=== PATIENT | male | born 1980 | race American Indian/Alaskan Native ===

== ENCOUNTER 2021-07-26 19:46 | Emergency (ER) | payer SELFPAY ==
[2021-07-26 21:39] VITALS: BP 151/96
--- NOTE | 2021-07-26 22:22 | XRay Report ---
RIGHT HAND 3 VIEW(S) INDICATION / CLINICAL INFORMATION: MIDDLE FINGER INJURY - DISLOCATION COMPARISON: None available. FINDINGS: BONES / JOINT(S): There is a dislocation at the long finger PIP joint with the middle phalanx disloca frederick posteriorly relative to the proximal phalanx of approximately one shaft width. No acute fracture identified. SOFT TISSUES: No significant abnormality. ADDITIONAL FINDINGS: None. Signer Name: Fortunato Ferrer MD Signed: 07/26/2021 10:17 PM Workstation Name: [id number]
[2021-07-26] MEDS ORDERED: LIDOCAINE-MPF (1%) 10 MG/1 ML VIAL 5 ML INFILTRATI ONE (22:37)
[2021-07-26] MEDS ORDERED: IBUPROFEN 600 MG TAB PO ONE (22:37)
[2021-07-27] MEDS ORDERED: HYDROcodone/ACETAMINOPHEN 5-325 MG TAB PO ONE (00:30)
[2021-07-27] MEDS ORDERED: ONDANSETRON 4 MG ODT TAB PO ONE (00:30)
--- NOTE | 2021-07-27 01:31 | XRay Report ---
RIGHT HAND, 2 VIEWS INDICATION / CLINICAL INFORMATION: Post-reduction x-ray- right middle finger. COMPARISON: 07/26/2021 FINDINGS: There has been successful reduction of previously noted dislocated PIP joint, middle finger. No fracture. Alignment is now normal. IMPRESSION: Successful reduction of previously noted dislocated PIP joint, middle finger. No visible fracture. Signer Name: Dian Prado MD Signed: 07/27/2021 1:26 AM Workstation Name: [id number]
--- NOTE | 2021-07-27 01:51 | Emergency Department Report ---
ED Upper Extremity Inj HPI - General Chief Complaint: Extremity Injury, Upper Stated Complaint: DISLOCATED FINGER Source: patient Mode of arrival: Ambulatory Limitations: No Limitations - History of Present Illness Initial Comments: Patient is a 41-year-old -Al[place]ian male with no past medical history presents to the ED with complaint of acute onset persistent right hand and right middle finger pain with deformity and swelling after he accidentally tripped at work and landed on his right hand and ended up flexing his right middle finger and felt a "pop" sound in the process about 8 hours ago. Patient states that since then he has not been able to perform any active range of motion of the right middle finger because of deformity, swelling and pain. Patient denies chest pain, shortness of breath, dizziness, syncope, nausea and vomiting, seizures, head or neck injuries, back pain, hip pain, upper and lower extremity numbness and tingling or weakness. MD Complaint: Injury to:: right, finger (right middle finger pain, deformity and swelling) -: Sudden, hour(s) (8) Other Extremity Injury: Fingers: Right (right middle finger swelling, deformity and pain) Other Injuries: none Handedness: right Place: work Severity scale (0 -10): 8 Improves With: none Worsens With: movement of extremity Context: fall, direct blow, injury Associated Symptoms: denies other symptoms. denies: weakness, numbness, neck pain, suspects foreign body, nausea/vomiting, heard/felt popping sensat - Related Data Previous Rx's Medication Instructions Recorded Last Taken Type Ibuprofen [Motrin] 800 mg PO Q8HR PRN #30 tablet 07/27/21 Unknown Rx traMADoL [Ultram] 50 mg PO Q6HR PRN #10 tablet 07/27/21 Unknown Rx Allergies Allergy/AdvReac Type Severity Reaction Status Date / Time No Known Allergies Allergy Verified 07/26/21 22:43 ED Review of Systems ROS: Stated complaint: DISLOCATED FINGER Other details as noted in HPI Constitutional: denies: chills, fever Eyes: denies: eye pain, eye discharge, vision change ENT: denies: ear pain, throat pain Respiratory: denies: cough, shortness of breath, wheezing Cardiovascular: denies: chest pain, palpitations Endocrine: no symptoms reported Gastrointestinal: denies: abdominal pain, nausea, vomiting, diarrhea Genitourinary: denies: urgency, dysuria Musculoskeletal: joint swelling, arthralgia (right middle finger pain, swelling, deformity). denies: back pain Skin: denies: rash, lesions Neurological: denies: headache, weakness, paresthesias Psychiatric: denies: anxiety, depression Hematological/Lymphatic: denies: easy bleeding, easy bruising ED Past Medical Hx - Past Medical History Previous Medical History?: No - Surgical History Past Surgical History?: Yes Additional Surgical History: Rt Leg Fx and surgery - Medications Home Medications: Home Medications Medication Instructions Recorded Confirmed Last Taken Type Ibuprofen [Motrin] 800 mg PO Q8HR PRN #30 tablet 07/27/21 Unknown Rx traMADoL [Ultram] 50 mg PO Q6HR PRN #10 tablet 07/27/21 Unknown Rx ED Physical Exam - General Limitations: No Limitations General appearance: alert, in no apparent distress - Head Head exam: Present: atraumatic, normocephalic, normal inspection - Eye Eye exam: Present: normal appearance, PERRL, EOMI Pupils: Present: normal accommodation - ENT ENT exam: Present: normal exam, normal orophraynx, mucous membranes moist, TM's normal bilaterally, normal external ear exam - Neck Neck exam: Present: normal inspection, full ROM. Absent: tenderness, lymphadenopathy - Respiratory Respiratory exam: Present: normal lung sounds bilaterally. Absent: respiratory distress, wheezes, rales, rhonchi, chest wall tenderness, accessory muscle use, decreased breath sounds, prolonged expiratory - Cardiovascular Cardiovascular Exam: Present: regular rate, normal rhythm, normal heart sounds. Absent: systolic murmur, diastolic murmur, rubs, gallop - GI/Abdominal GI/Abdominal exam: Present: soft, normal bowel sounds. Absent: tenderness, guarding, rebound, hyperactive bowel sounds, hypoactive bowel sounds - Extremities Exam Extremities exam: Present: normal inspection, tenderness (Palpable right middle finger tenderness with swelling and mild deformity at the PIP joint and limited range of motion due to pain), normal capillary refill, joint swelling. Absent: full ROM (Limited range of motion due to pain of right middle finger), pedal edema, calf tenderness, other - Back Exam Back exam: Present: normal inspection, full ROM. Absent: tenderness, CVA tenderness (R), CVA tenderness (L), muscle spasm, paraspinal tenderness, vertebral tenderness - Neurological Exam Neurological exam: Present: alert, oriented X3, CN II-XII intact, normal gait, reflexes normal - Psychiatric Psychiatric exam: Present: normal affect, normal mood - Skin Skin exam: Present: warm, dry, intact, normal color. Absent: rash ED Course Vital Signs 07/26/21 07/26/21 07/27/21 21:34 22:56 01:35 Temperature 98.6 F Pulse Rate 85 Respiratory 85 H 16 14 Rate Blood Pressure 151/96 [Right] O2 Sat by Pulse 98 Oximetry - Orthopedic Joint Reduction Joint #1 Consent Obtained: verbal consent Time Out Performed: Yes Side: right Joint Reduction Location: finger (right middle finger) Analgesia: digital block Local Anesthetic Used: Lidocaine 1% (5 cc) Amount of Anesthetic Used (mls): 5 Technique Used: direct manipulation Post-Reduction Neuro Exam: intact Post-Reduction Vascular Exam: intact Post Reduction X-Ray Obtained: Yes (complete reduction) Post Reduction X-Ray Results: reduced Splint Applied: Yes Patient Tolerated Procedure: well ED Medical Decision Making - Radiology Data Radiology results: report reviewed, image reviewed [address] [address] XRay Report Signed [address] [address] XRay Report Signed Patient: JAMAAL PETTIT MR#: [id number] [birth year] : 1980 Acct:[id number] Age/Sex: 41 / M ADM Date: 07/26/21 Loc: ED Attending Dr: Ordering Physician: KAREN BUCKNER Date of Service: 07/26/21 Procedure(s): XR hand 3+V RT Accession Number(s): [id number] cc: KAREN BUCKNER Fluoro Time In Minutes: RIGHT HAND 3 VIEW(S) INDICATION / CLINICAL INFORMATION: MIDDLE FINGER INJURY - DISLOCATION COMPARISON: None available. FINDINGS: BONES / JOINT(S): There is a dislocation at the long finger PIP joint with the middle phalanx dislocated posteriorly relative to the proximal phalanx of approximately one shaft width. No acute fracture identified. SOFT TISSUES: No significant abnormality. ADDITIONAL FINDINGS: None. Signer Name: Fortunato Ferrer MD Signed: 07/26/2021 10:17 PM Workstation Name: [id number] Transcribed By: DB Dictated By: FORTUNATO FERRER MD Electronically Authenticated By: FORTUNATO FERRER MD Signed Date/Time: 07/26/212216 DD/ 15 TD/TT: Print Patient: JAMAAL PETTIT MR#: [id number] 80 : 1980 Acct:[id number] Age/Sex: 41 / M ADM Date: 07/26/21 Loc: ED Attending Dr: Ordering Physician: KAREN BUCKNER Date of Service: 07/27/21 Procedure(s): XR hand 2V RT Accession Number(s): [id number] cc: KAREN BUCKNER Fluoro Time In Minutes: RIGHT HAND, 2 VIEWS INDICATION / CLINICAL INFORMATION: Post-reduction x-ray- right middle finger. COMPARISON: 07/26/2021 FINDINGS: There has been successful reduction of previously noted dislocated PIP joint, middle finger. No fracture. Alignment is now normal. IMPRESSION: Successful reduction of previously noted dislocated PIP joint, middle finger. No visible fracture. Signer Name: Dian Prado MD Signed: 07/27/2021 1:26 AM Workstation Name: [id number] Transcribed By: Dictated By: Dian Prado MD Electronically Authenticated By: Dian Prado MD Signed Date/Time: 07/27/21125 DD/ 3 TD/TT: - Medical Decision Making This is a 41-year-old -Algerian male with no past medical history presents to the ED with complaint of acute onset persistent right hand and right middle finger pain with deformity and swelling after he accidentally tripped at work and landed on his right hand and ended up flexing his right middle finger and felt a "pop" sound in the process about 8 hours ago. Patient states that since then he has not been able to perform any active range of motion of the right middle finger because of deformity, swelling and pain. In the ED, patient is alert and oriented x3 and is not in distress. Patient was treated for pain in the ED. Initial right hand x-ray showed a dislocation at the long finger PIP joint with the middle phalanx dislocated posteriorly relative to the proximal phalanx of approximately one shaft width. No acute fracture identified. The right middle finger dislocation was manually reduced in the ED after application of local anesthetic lidocaine 1% solution as a digital block. The reduction was successfully performed as was confirmed by the postreduction x-ray of right hand which showed a successful reduction of previously noted dislocated PIP joint, middle finger. No fracture. Alignment is now normal. The right middle finger was splinted with a finger splint and the patient discharged home on pain medications and advised to follow-up with the orthopedic surgeon on-call Dr. Brandy vivas for further evaluation as needed. Patient was advised return to the ED immediately if symptoms get worse. - Differential Diagnosis finger fracture; finger dislocation; finger sprain; finger sprain Critical care attestation.: If time is entered above; I have spent that time in minutes in the direct care of this critically ill patient, excluding procedure time. ED Disposition Clinical Impression: Closed dislocation of right middle finger Injury of right middle finger Qualifiers: Encounter type: initial encounter Qualified Code(s): S69.91XA - Unspecified injury of right wrist, hand and finger(s), initial encounter Disposition: 01 HOME / SELF CARE / HOMELESS Is pt being admited?: No Does the pt Need Aspirin: No Condition: Stable Instructions: Finger or Thumb Dislocation, [id number], Cast or Splint Care, Adult, [id number] Additional Instructions: The right hand x-ray initially showed dislocation of right middle finger at the PIP joint, which was reduced successfully and confirmed by x-ray to have been successfully and completely reduced. Therefore take medications with food as needed for pain, drink plenty of fluids and follow-up with the orthopedic surgeon Dr. Justin as needed. Return to the ED immediately if symptoms get worse. Otherwise follow-up with your primary care physician in 7 to 10 days for reevaluation. Prescriptions: Ibuprofen [Motrin] 800 mg PO Q8HR PRN #30 tablet PRN Reason: Pain , Severe (7-10) traMADoL [Ultram] 50 mg PO Q6HR PRN #10 tablet PRN Reason: Pain Referrals: MUNDO JUSTIN MD [Staff Physician] - as needed Forms: Work/School Release Form(ED) Time of Disposition: 01:53 Print Language: CZECH
== END 2021-07-27 02:30 | disposition home or self-care (01) ==
LOC: ED 19:46
DX: S63.252A Unspecified dislocation of right middle finger, initial encounter (principal); S69.81XA Other specified injuries of right wrist, hand and finger(s), initial encounter; X58.XXXA Exposure to other specified factors, initial encounter; Y93.89 Activity, other specified; Y92.89 Other specified places as the place of occurrence of the external cause; Y99.8 Other external cause status
CPT/HCPCS: 26770; 73120; 73130; 99283; J3490; Q0162